=== PATIENT | female | born 1990 | race Caucasian/White ===

== ENCOUNTER 2017-03-31 16:37 | Emergency (ER) | payer OTHER ==
[~2017-03-31] VITALS: Ht 170.2 cm; Wt 90.9 kg
[~2017-03-31 16:37] MED LIST: PROZAC10 M2 PO
[2017-03-31 17:29] LABS: BASO # 0.1 (0.02-0.10); EOS # 0.1 (0.04-0.40); EOS % 1.3 % (1.0-5.0); HEMATOCRIT 40.7 % (37.0-47.0); HEMOGLOBIN 12.7 g/dL (12.5-16.0); MEAN CELL VOLUME 80 fl (78-100); MEAN CORPUSCULAR HEMOGLOBIN 25 pg (27-31); MEAN CORPUSCULAR HGB CONC 31 g/dL (33-37); MEAN PLATELET VOLUME 9.8 fl (7.4-10.4); MONO # 0.7 (0.20-0.80); PLATELET COUNT 295 K/mm3 (130-400); RED BLOOD COUNT 5.07 M/mm3 (4.10-5.30); RED CELL DISTRIBUTION WIDTH 14.5 % (11.5-14.5); WHITE BLOOD COUNT 9.9 K/mm3 (4.8-10.8)
[2017-03-31 17:47] LABS: ALBUMIN 4.3 g/dL (3.5-5.0); BUN/CREATININE RATIO 14.6 (6.0-26.0); CALCIUM 9.3 mg/dL (8.4-10.2); TOTAL BILIRUBIN 0.3 mg/dL (0.2-1.3); TOTAL PROTEIN 8.2 g/dL (6.3-8.2)
[2017-03-31 18:01] LABS: PROTHROMBIN TIME 10.3 SECONDS (9.0-12.0)
[2017-03-31 18:05] LABS: D-DIMER 0.11 mg/L FEU (0.15-0.50)
[2017-03-31 18:13] LABS: CKMB ISOENZYME 1.3 ng/mL (0.6-3.5)
[2017-03-31 18:15] LABS: TROPONIN-I < 0.03 ng/mL (0.00-0.06)
[2017-03-31] MEDS ORDERED: CATAPRES 0.1MG0.1 MG PO (18:24)
[2017-03-31] MEDS ORDERED: METOPROLOL SUCC25 M1 PO (19:57)
[2017-03-31 20:32] VITALS: BP 149/85
--- NOTE | 2017-04-11 11:50 | NUR ---
Spoke with pt last week regarding inconclusive holter monitor results d/t monitor coming off during night. Pt aware of incident of it coming off. Pt denies offer to come back in for re trial with holter monitor. Pt reports she has already seen her PCP and was started on new meds and is feeling better and doesnt believe holter monitor is needed.
== END 2017-03-31 20:20 | disposition home or self-care (01) ==
LOC: ED 16:37
PROVIDERS: Nurse Practitioner Primary Care
DX: I16.0 Hypertensive urgency (principal); Z97.5 Presence of (intrauterine) contraceptive device; Z86.718 Personal history of other venous thrombosis and embolism

== ENCOUNTER → 2021-06-09 | Outpatient (CLI) | payer BC, MEDICAID ==
[~2021-06-09] MED LIST changes: +CATAPRES 0.1MG0.1 MG PO; +METOPROLOL SUCC25 M1 PO
== END ==
LOC: RAD 14:01
DX: J98.8 Other specified respiratory disorders (principal)

== ENCOUNTER → 2021-12-14 | Outpatient (CLI) | payer BC, MEDICAID | LOC: VAS 15:42 | DX: M79.89 Other specified soft tissue disorders (principal); M79.604 Pain in right leg ==

== ENCOUNTER → 2022-01-06 | Outpatient (CLI) | payer BC, MEDICAID | LOC: RAD 17:14 | DX: M22.41 Chondromalacia patellae, right knee (principal); M25.461 Effusion, right knee; M79.604 Pain in right leg; M79.89 Other specified soft tissue disorders ==